=== PATIENT | female | born 1965 | race Two or more races ===

== ENCOUNTER 2017-09-25 07:30 | Inpatient (IN) | payer OTHER ==
[~2017-09-25] VITALS: Ht 175.3 cm; Wt 82.6 kg
[2017-11-27] MEDS ORDERED: PANTOPRAZOLE SO40 MG ORAL (10:48)
[2017-11-27] MEDS ORDERED: LANTUS SOL100 UNIT/1 SUBQ (10:48)
[2017-11-27] MEDS ORDERED: METFORMIN HCL1000 M1 ORAL (10:48)
[2017-11-27] MEDS ORDERED: HUMALOG100 UNIT/1 SUBQ (10:48)
[2017-11-27] MEDS ORDERED: AMLODIPINE BESYL5 MG ORAL (10:48)
[2017-11-27] MEDS ORDERED: LOSARTAN-HCTZ1 EACH ORAL (10:48)
[2017-11-28] VITALS (9 sets, daily range): BP systolic 104–163; BP diastolic 54–79
[2017-11-28] MEDS ORDERED: Zemuron 50mg/5ml Inj IV ONE (06:15)
[2017-11-28] MEDS ORDERED: Sodium Chloride 10ml vial INJ ONE (06:31)
[2017-11-28] MEDS ORDERED: Lidocaine 1% MPF 10mg/ml 5ml ONE (06:31)
[2017-11-28] MEDS ORDERED: Lidocaine 1% Plain 30 ml INJ ONE (06:32)
[2017-11-28] MEDS ORDERED: fentaNYL 100 mcg/2 mL IV ONE ×2 (06:42→09:21)
[2017-11-28] MEDS ORDERED: ceFAZolin sod 2 GM in D5W 110 ML IVPB ONE (07:00)
[2017-11-28] MEDS ORDERED: LR 1000ml 1,000 ML IVLG SCH (07:06)
--- NOTE | 2017-11-28 07:08 | Anethesia Preoperative Eval ---
Anesthesia Pre-op PMH/ROS General Date of Evaluation: Nov 28, 2017 Time of Evaluation: 07:31 Anesthesiologist: Karon ASA Score: ASA 3 Mallampati Score Class I : Soft palate, uvula, fauces, pillars visible Class II: Soft palate, uvula, fauces visible Class III: Soft palate, base of uvula visible Class IV: Only hard plate visible Mallampati Classification: Class II Surgeon: Katy Diagnosis: Back Pain Surgical Procedure: Bilateral L5-S1 Microdecompression, Microdiscectomy Anesthesia History: none Family History: no anesthesia problems Allergies: Coded Allergies: No Known Allergies (Unverified , 11/27/17) Medications: see eMAR Past Medical History Cardiovascular: Reports: HTN Gastrointestinal/Genitourinary: Reports: GERD Endocrine: Reports: DM Other: obesity - BMI 30 PSxH Narrative: NATALIE Anesthesia Pre-op Phys. Exam Physician Exam Last Vital Signs Date Time Temp Pulse Resp B/P (MAP) Pulse Ox O2 Delivery O2 Flow Rate FiO2 11/28/17 06:49 Room Air 11/28/17 06:33 96.7 96 18 163/79 (107) 99 96.7 Constitutional: NAD Neurologic: CN 2-12 intact Cardiovascular: RRR Respiratory: CTA Gastrointestinal: S/NT/ND Airway Exam Mallampati Score: Class II MO: full ROM: full Teeth: intact Anesthesia Pre-op A/P Risk Assessment & Plan Assessment: ASA 3 Plan: GA, SED, GlideScope Go Status Change Before Surgery: No Pre-Antibiotics Dru Gram Ancef IV Given Within 1 Hr of Incision: Yes Time Given: 07:41 Jimmy Brantley MD Nov 28, 2017 07:08
[2017-11-28] MEDS ORDERED: EPINEPHrine 1mg/1ml Amp ONE (07:14)
[2017-11-28] MEDS ORDERED: Vancomycin 1gm inj IVPB ONE (07:14)
[2017-11-28] MEDS ORDERED: Atropine Sulfate 0.4mg/ml inj IVP PRN (07:15)
[2017-11-28] MEDS ORDERED: Hydromorphone 0.5mg/0.5ml inj IVP PRN (07:15)
[2017-11-28] MEDS ORDERED: Norco 5mg/325mg tab ORAL PRN ×2 (07:15→07:30)
[2017-11-28] MEDS ORDERED: Labetalol 5mg/ml 20ml vial IV PRN (07:15)
[2017-11-28] MEDS ORDERED: Ketorolac 30mg Inj IV PRN ×2 (07:15)
[2017-11-28] MEDS ORDERED: Midazolam 2mg/2ml Inj IVP PRN (07:15)
[2017-11-28] MEDS ORDERED: Meperidine 50mg/ml Inj(FOR RIGORS ONLY) IVP PRN (07:15)
[2017-11-28] MEDS ORDERED: DiphenhydrAMINE 50mg/ml Inj IVP PRN (07:15)
[2017-11-28] MEDS ORDERED: HYDROcodone/Acetamin 7.5/325 tab ORAL PRN (07:15)
[2017-11-28] MEDS ORDERED: Gelfoam Size TOPIC ONE (07:15)
[2017-11-28] MEDS ORDERED: oxyCODONE HCL/Acetaminophen 5/325mg ORAL PRN (07:15)
[2017-11-28] MEDS ORDERED: fentaNYL 100 mcg/2 mL IV PRN (07:15)
[2017-11-28] MEDS ORDERED: LORazepam Inj 2mg/ml 1ml IV PRN (07:15)
[2017-11-28] MEDS ORDERED: Thrombin 5000 units TOPIC ONE ×2 (07:15→07:16)
[2017-11-28] MEDS ORDERED: Acetaminophen (Non formulary) 100 ML IV ONE (07:15)
[2017-11-28] MEDS ORDERED: Metoclopramide 10mg/2ml Inj IVP PRN (07:15)
[2017-11-28] MEDS ORDERED: Bupivacaine 0.5% Inj 30 ml vial INJ ONE (07:15)
[2017-11-28] MEDS ORDERED: Bacitracin 50000 Units Vial ONE (07:16)
[2017-11-28] MEDS: D5 1/2NS 1,000 ML IV SCH ×2 (07:27→15:11)
[2017-11-28] MEDS ORDERED: Propofol 1,000mg/ 100ml btl IV ONE (07:30)
[2017-11-28] MEDS ORDERED: Sterile Water Irrig 1000ml IRRIG ONE (07:30)
[2017-11-28] MEDS ORDERED: Morphine Sulfate 2mg/ml Inj IV PRN (07:30)
[2017-11-28] MEDS ORDERED: LR 1000ml ONE (07:30)
[2017-11-28] MEDS ORDERED: Morphine Sulfate 4mg/ml Inj (IV USE ONLY) IV PRN ×2 (07:30)
[2017-11-28] MEDS ORDERED: NS Irrig 1000ml ONE (07:30)
[2017-11-28] MEDS ORDERED: HYDROmorphone 1mg/ml Carpuject IVP PRN (07:30)
[2017-11-28] MEDS ORDERED: Naloxone 0.4mg/ml Inj IVP PRN (07:30)
--- NOTE | 2017-11-28 08:34 | Immediate Post-Op Evaluation ---
Immediate Post-Op Evalulation Immediate Post-Op Evalulation Procedure: Bilateral L5-S1 Microdecompression, Microdiscectomy Date of Evaluation: Nov 28, 2017 Time of Evaluation: 10:45 IV Fluids: 1200 LR Blood Products: 0 Estimated Blood Loss: 40 Urinary Output: 300 Blood Pressure Systolic: 104 Blood Pressure Diastolic: 50 Pulse Rate: 91 Respiratory Rate: 18 O2 Sat by Pulse Oximetry: 100 Temperature (Fahrenheit): 99.7 Pain Score (1-10): 3 Nausea: No Vomiting: No Complications 0 Patient Status: awake, reacts, patent, extubated, none Hydration Status: adequate Dru Grams Ancef IV Given Within 1 Hr of Incision: Yes Time Given: 07:41 Jimmy Brantley MD Nov 28, 2017 08:34
[2017-11-28] MEDS ORDERED: Glycopyrrolate 0.2mg/ml 1ml Vial ONE (08:46)
[2017-11-28] MEDS ORDERED: Neostigmine 1mg/ml 10ml Inj ONE (08:46)
[2017-11-28] MEDS: Docusate 100mg cap ORAL SCH ×2 (09:00→18:15)
--- NOTE | 2017-11-28 09:01 | Diagnostic Imaging Report ---
Indication: Left ankle pain Technique: 3 views of the left ankle Comparison: none Findings: There is mild soft tissue swelling over the lateral malleolus. No acute fractures. No dislocations. The joint spaces are preserved. No radiopaque foreign body. There are vascular calcifications Impression: Soft tissue swelling. No acute bony trauma
--- NOTE | 2017-11-28 10:17 | Pre-Procedure Note/Attestation ---
Pre-Procedure Note/Attestation Complete Prior to Procedure Procedure Narrative: B/L L5S1 microdecompression and microdiscectomy Indications for Procedure Pre-Operative Diagnosis: lumbar radiculopathy with hnp and stenosis and failure of non op management Attestation I attest that I discussed the nature of the procedure; its benefits; risks and complications; and alternatives (and the risks and benefits of such alternatives ), prior to the procedure, with the patient (or the patient's legal insurance follow up representative). I attest that, if there was a reasonable possibility of needing a blood transfusion, the patient (or the patient's legal insurance follow up representative) was given the [place] Department of [employer] Services standardized written summary, pursuant to the Wili Zeke Blood Safety Act ([place] Health and Safety Code # 1645, as amended). I attest that I re-evaluated the patient just prior to the surgery and that there has been no change in the patient's H&P, except as documented below: Govind Burns MD Nov 28, 2017 10:17
--- NOTE | 2017-11-28 10:28 | Brief Operative Note ---
Immediate Post Operative Note Operative Note Pre-op Diagnosis: lumbar radiculopathy with hnp and stenosis and failure of non op management Procedure: B/L L5S1 microdecompression/microdiscectomy/ and foraminotomies Post-op Diagnosis: same as pre-op Findings: consistent w/pre-op dx studies Surgeon: Katy Product Sales Engineer: Flo Anesthesiologist: Victoria Anesthesia: general Specimen: yes Complications: none Condition: stable Fluids: 1L Estimated Blood Loss: minimal - 40cc Drains: hemovac Implant(s) used?: No Govind Burns MD Nov 28, 2017 10:28
--- NOTE | 2017-11-28 11:07 | Diagnostic Imaging Report ---
Indication: Pain in left leg status post fall yesterday Technique: 2 views of the left tibia and fibula Comparison: none Findings: No acute fractures. No dislocations. Joint spaces are preserved Impression: Negative
--- NOTE | 2017-11-28 11:38 | Diagnostic Imaging Report ---
Indication: Pain in left lower extremity greater than right lower extremity, intraoperative Technique: Intraoperative imaging Total fluoroscopy time 3.9 seconds Total dose 1.95 mgy Number of images: 2 Comparison: none Findings: Intraoperative images demonstrate localizer needles posterior to what is presumably the L4-5 disc and the L5-S1 disc. Subsequent image demonstrates a surgical tool projecting posterior to the top of S1 Impression: Intraoperative imaging, as described
--- NOTE | 2017-11-28 15:08 | History and Physical ---
History of Present Illness General Date patient seen: Nov 28, 2017 Present Illness HPI 52 year old female with lumbar radiculopathy with hnp and stenosis admitted for L5-S1 microdecompression/microdiscectomy. Post operatively pt is admitted for postop management. Allergies: Coded Allergies: No Known Allergies (Unverified , 11/27/17) Medication History Scheduled Amlodipine Besylate* (Amlodipine Besylate*), 5 MG ORAL DAILY, (Reported) Insulin Glargine (Lantus), 70 SUBQ BEDTIME, (Reported) Insulin Lispro (Humalog), 7 SUBQ BEFORE MEALS, (Reported) Losartan/Hydrochlorothiazide (Losartan-Hctz 100-12.5 Mg Tab), 1 TAB ORAL DAILY, (Reported) Metformin Hcl* (Metformin Hcl*), 1,000 MG ORAL BIDAC, (Reported) Pantoprazole* (Pantoprazole*), 40 MG ORAL DAILY, (Reported) Patient History Healthcare decision maker leidy() Resuscitation status Full Code Advanced Directive on File No Review of Systems All Other Systems: negative except mentioned in HPI Physical Exam General Appearance: WD/WN, no apparent distress Lines, tubes and drains: peripheral HEENT: normocephalic, atraumatic Neck: non-tender, supple Respiratory/Chest: chest wall non-tender, lungs clear Breasts: no masses Cardiovascular/Chest: normal rate, regular rhythm Last 24 Hour Vital Signs Date Time Temp Pulse Resp B/P (MAP) Pulse Ox O2 Delivery O2 Flow Rate FiO2 11/28/17 11:14 88 18 128/62 100 Nasal Cannula 3 11/28/17 11:00 90 18 130/61 100 Nasal Cannula 3 11/28/17 10:44 89 18 117/57 100 Simple Mask 8 11/28/17 10:39 87 18 111/54 100 Simple Mask 8 11/28/17 10:34 99.7 89 18 104/56 100 Simple Mask 8 99.7 11/28/17 10:34 211.5 91 18 100 11/28/17 06:49 Room Air 11/28/17 06:33 96.7 96 18 163/79 (107) 99 96.7 Intake and Output 11/27/17 11/28/17 19:00 07:00 # Voids 1 Height (Feet): 5 Height (Inches): 9.00 Weight (Pounds): 185 Medications Current Medications Medications (Trade) Dose Ordered Sig/Raymundo Route PRN Reason Start Time Stop Time Status Last Admin Dose Admin Acetaminophen/ Hydrocodone Bitart ([place] 5/325) 1 tab Q3H PRN ORAL pain score 1-3 11/28/17 07:30 12/05/17 07:29 Acetaminophen/ Hydrocodone Bitart ([place] 7.5/325) 1 tab Q3H PRN ORAL pain score 4-6 11/28/17 07:30 12/05/17 07:29 Acetaminophen/ Hydrocodone Bitart ([place] 7.5/325) 2 tab Q3H PRN ORAL pain scale 7-10 11/28/17 07:30 12/05/17 07:29 Cefazolin Sodium 1 gm/Dextrose 55 ml @ 110 mls/hr Q8H IV 11/28/17 16:00 11/29/17 08:29 Dextrose/Sodium Chloride 1,000 ml @ 100 mls/hr Q10H IV 11/28/17 07:27 12/28/17 07:26 Docusate Sodium (Colace) 100 mg TWICE A DAY ORAL 11/28/17 09:00 12/28/17 08:59 Hydromorphone HCl (Dilaudid) 1 mg Q2H PRN IVP Breakthrough Pain 11/28/17 07:30 12/05/17 07:29 Morphine Sulfate (Morphine Sulfate) 2 mg Q4H PRN IV Mild Pain (Pain Scale 1-3) 11/28/17 07:30 12/05/17 07:29 Morphine Sulfate (Morphine Sulfate) 4 mg Q3H PRN IV Severe Pain (Pain Scale 7-10) 11/28/17 07:30 12/05/17 07:29 Morphine Sulfate (Morphine Sulfate) 4 mg Q4H PRN IV Moderate Pain (Pain Scale 4-6) 11/28/17 07:30 12/05/17 07:29 Naloxone HCl (Narcan) 0.1 mg PRN PRN IVP RR<12/min, pt unarousable 11/28/17 07:30 12/28/17 07:29 Assessment/Plan Problem List: (1) Lumbar radiculopathy ICD Codes: M54.16 - Radiculopathy, lumbar region SNOMED: 768039233 (2) Diabetes mellitus ICD Codes: E11.9 - Type 2 diabetes mellitus without complications SNOMED: 10031574 (3) HTN (hypertension) ICD Codes: I10 - Essential (primary) hypertension SNOMED: 70519487 Assessment/Plan pain management sliding scale diabetic diet pt/ot Maranda Oscar MD Nov 28, 2017 15:08
[2017-11-28] MEDS: ceFAZolin sod 1 GM in D5W 55 ML IV SCH (15:11)
[2017-11-28] MEDS: NovoLOG Insulin Flexpen SUBQ SCH ×2 (18:43→20:30)
[2017-11-29] VITALS: BP 113/56
[2017-11-29] MEDS: ceFAZolin sod 1 GM in D5W 55 ML IV SCH ×2 (00:59→09:08)
[2017-11-29] MEDS: HYDROcodone/Acetamin 7.5/325 tab ORAL PRN ×4 (01:03→21:23)
[2017-11-29 04:00] VITALS: BP 115/70
[2017-11-29] MEDS: NovoLOG Insulin Flexpen SUBQ SCH ×4 (05:52→21:26)
--- NOTE | 2017-11-29 07:57 | 48 Hour Post Anesthesia Eval ---
Post Anesthesia Evaluation Procedure: Bilateral L5-S1 Microdecompression, Microdiscectomy Date of Evaluation: Nov 29, 2017 Time of Evaluation: 06:30 Blood Pressure Systolic: 115 0: 70 Pulse Rate: 82 Respiratory Rate: 17 Temperature (Fahrenheit): 98 O2 Sat by Pulse Oximetry: 95 Airway: patent Nausea: No Vomiting: No Pain Intensity: 2 Hydration Status: adequate Cardiopulmonary Status: at baseline Mental Status/LOC: patient returned to baseline Post-Anesthesia Complications: 0 Follow-up care needed: N/A - further care as per primary teamSandy Uriostegui MD Nov 29, 2017 07:57
[2017-11-29 08:00] VITALS: BP 116/66
--- NOTE | 2017-11-29 08:47 | General Progress Note ---
Progress Note Progress Note mild lbp and no leg pain hv min output taken out this am ambulating and doing well with it avss a and o times 3 dressing changed inc cdi hv out 5/5 motor in the le and ue lt intact calves soft and nt a: doing well P: oob and npt pain meds fall and spine precautions folluw up in the office in 7 to 10 days rx given Govind Burns MD Nov 29, 2017 08:47
[2017-11-29] MEDS: Docusate 100mg cap ORAL SCH ×2 (09:07→17:03)
[2017-11-29] MEDS ORDERED: NORCO 5-325 TA1 EACH ORAL (10:13)
[2017-11-29] MEDS ORDERED: NAPROXEN500 M1 ORAL (10:16)
[2017-11-29 12:00] VITALS: BP 121/64
--- NOTE | 2017-11-29 13:37 | Pulmonology Progress Note ---
Assessment/Plan Problems: (1) Lumbar radiculopathy (2) Diabetes mellitus (3) HTN (hypertension) Assessment/Plan improving pain management monitor BP symptomatic treatment Subjective ROS Limited/Unobtainable: Yes Allergies: Coded Allergies: MORPHINE (Verified Allergy, Mild, Rash, 11/29/17) Objective Last 24 Hour Vital Signs Date Time Temp Pulse Resp B/P (MAP) Pulse Ox O2 Delivery O2 Flow Rate FiO2 11/29/17 12:00 99.7 99 20 121/64 (83) 97 99.7 11/29/17 09:08 102 116/66 11/29/17 09:00 Room Air Room Air 11/29/17 08:00 99.0 102 20 116/66 (83) 96 99.0 11/29/17 07:57 208.4 82 17 95 11/29/17 04:00 98.0 82 17 115/70 (85) 95 98.0 11/29/17 00:00 98.3 94 18 113/56 (75) 97 98.3 11/28/17 21:00 Room Air Room Air 11/28/17 20:00 98.4 100 20 133/69 (90) 97 98.4 11/28/17 16:00 98.7 88 20 121/74 (90) 97 98.7 Intake and Output 11/28/17 11/29/17 19:00 07:00 Intake Total 2520 ml 855 ml Output Total 340 ml Balance 2180 ml 855 ml Intake Oral 720 ml 480 ml IV Total 1800 ml 375 ml Output Urine Total 300 ml Estimated Blood Loss 40 ml # Voids 2 2 General Appearance: cachetic HEENT: normocephalic, atraumatic Respiratory/Chest: chest wall non-tender, lungs clear Cardiovascular: normal rate, no JVD Abdomen: soft, non tender Extremities: no cyanosis Skin: no lesions Neurologic/Psychiatric: no motor/sensory deficits Current Medications Medications (Trade) Dose Ordered Sig/Raymundo Route PRN Reason Start Time Stop Time Status Last Admin Dose Admin Acetaminophen/ Hydrocodone Bitart ([place] 5/325) 1 tab Q3H PRN ORAL pain score 1-3 11/28/17 07:30 12/05/17 07:29 Acetaminophen/ Hydrocodone Bitart ([place] 7.5/325) 1 tab Q3H PRN ORAL pain score 4-6 11/28/17 07:30 12/05/17 07:29 11/29/17 12:23 Acetaminophen/ Hydrocodone Bitart ([place] 7.5/325) 2 tab Q3H PRN ORAL pain scale 7-10 11/28/17 07:30 12/05/17 07:29 Amlodipine Besylate (Norvasc) 5 mg DAILY ORAL 11/29/17 09:00 12/29/17 08:59 11/29/17 09:08 Dextrose (Dextrose 50%) 25 ml PRN IV Hypoglycemia 11/28/17 15:15 12/28/17 15:14 Dextrose (Dextrose 50%) 50 ml PRN IV hypoglycemia 11/28/17 15:15 12/28/17 15:14 Docusate Sodium (Colace) 100 mg TWICE A DAY ORAL 11/28/17 09:00 12/28/17 08:59 11/29/17 09:07 Hydromorphone HCl (Dilaudid) 1 mg Q2H PRN IVP Breakthrough Pain 11/28/17 07:30 12/05/17 07:29 11/28/17 20:18 Insulin Aspart (NovoLOG) BEFORE MEALS AND HS SUBQ 11/28/17 16:30 12/28/17 16:29 11/29/17 12:12 Naloxone HCl (Narcan) 0.1 mg PRN PRN IVP RR<12/min, pt unarousable 11/28/17 07:30 12/28/17 07:29 Ondansetron HCl (Zofran) 4 mg Q6H PRN IVP Nausea & Vomiting 11/29/17 07:45 12/29/17 07:44 Sodium Chloride 1,000 ml @ 75 mls/hr [id number] IV 11/28/17 22:45 12/28/17 22:44 11/29/17 12:13 Maranda Oscar MD Nov 29, 2017 13:37
--- NOTE | 2017-11-29 14:17 | Pulmonology Progress Note ---
Assessment/Plan Problems: (1) Low grade fever (2) Lumbar radiculopathy (3) Diabetes mellitus (4) HTN (hypertension) Assessment/Plan cbc, bmp sliding scale urine analysis symptomatic treatment Subjective ROS Limited/Unobtainable: No Constitutional: Reports: no symptoms HEENT: Repors: no symptoms Respiratory: Reports: no symptoms Allergies: Coded Allergies: MORPHINE (Verified Allergy, Mild, Rash, 11/29/17) Objective Last 24 Hour Vital Signs Date Time Temp Pulse Resp B/P (MAP) Pulse Ox O2 Delivery O2 Flow Rate FiO2 11/29/17 12:00 99.7 99 20 121/64 (83) 97 99.7 11/29/17 09:08 102 116/66 11/29/17 09:00 Room Air Room Air 11/29/17 08:00 99.0 102 20 116/66 (83) 96 99.0 11/29/17 07:57 208.4 82 17 95 11/29/17 04:00 98.0 82 17 115/70 (85) 95 98.0 11/29/17 00:00 98.3 94 18 113/56 (75) 97 98.3 11/28/17 21:00 Room Air Room Air 11/28/17 20:00 98.4 100 20 133/69 (90) 97 98.4 11/28/17 16:00 98.7 88 20 121/74 (90) 97 98.7 Intake and Output 11/28/17 11/29/17 19:00 07:00 Intake Total 2520 ml 855 ml Output Total 340 ml Balance 2180 ml 855 ml Intake Oral 720 ml 480 ml IV Total 1800 ml 375 ml Output Urine Total 300 ml Estimated Blood Loss 40 ml # Voids 2 2 General Appearance: WD/WN HEENT: atraumatic Respiratory/Chest: chest wall non-tender, lungs clear Cardiovascular: normal peripheral pulses, normal rate, regular rhythm Abdomen: normal bowel sounds, soft, non tender Genitourinary: normal external genitalia Skin: no rash Current Medications Medications (Trade) Dose Ordered Sig/Raymundo Route PRN Reason Start Time Stop Time Status Last Admin Dose Admin Acetaminophen/ Hydrocodone Bitart ([place] 5/325) 1 tab Q3H PRN ORAL pain score 1-3 11/28/17 07:30 12/05/17 07:29 Acetaminophen/ Hydrocodone Bitart ([place] 7.5/325) 1 tab Q3H PRN ORAL pain score 4-6 11/28/17 07:30 12/05/17 07:29 11/29/17 12:23 Acetaminophen/ Hydrocodone Bitart ([place] 7.5/325) 2 tab Q3H PRN ORAL pain scale 7-10 11/28/17 07:30 12/05/17 07:29 Amlodipine Besylate (Norvasc) 5 mg DAILY ORAL 11/29/17 09:00 12/29/17 08:59 11/29/17 09:08 Dextrose (Dextrose 50%) 25 ml PRN IV Hypoglycemia 11/28/17 15:15 12/28/17 15:14 Dextrose (Dextrose 50%) 50 ml PRN IV hypoglycemia 11/28/17 15:15 12/28/17 15:14 Docusate Sodium (Colace) 100 mg TWICE A DAY ORAL 11/28/17 09:00 12/28/17 08:59 11/29/17 09:07 Hydromorphone HCl (Dilaudid) 1 mg Q2H PRN IVP Breakthrough Pain 11/28/17 07:30 12/05/17 07:29 11/28/17 20:18 Insulin Aspart (NovoLOG) BEFORE MEALS AND HS SUBQ 11/28/17 16:30 12/28/17 16:29 11/29/17 12:12 Naloxone HCl (Narcan) 0.1 mg PRN PRN IVP RR<12/min, pt unarousable 11/28/17 07:30 12/28/17 07:29 Ondansetron HCl (Zofran) 4 mg Q6H PRN IVP Nausea & Vomiting 11/29/17 07:45 12/29/17 07:44 Sodium Chloride 1,000 ml @ 75 mls/hr [id number] IV 11/28/17 22:45 12/28/17 22:44 11/29/17 12:13 Maranda Oscar MD Nov 29, 2017 14:17
[2017-11-29 14:45] LABS: BILIRUBIN, URINE NEGATIVE (NEGATIVE); COLOR,URINE PALE YELLOW; GLUCOSE, URINE (UA) NEGATIVE (NEGATIVE); KETONES,URINE NEGATIVE (NEGATIVE); LEUKOCYTE ESTERASE ,URINE 1+ (NEGATIVE); NITRITE,URINE NEGATIVE (NEGATIVE); PH,URINE 5 (4.5-8.0); PROTEIN,URINE 1+ (NEGATIVE); UROBILINOGEN,URINE NORMAL MG/DL (0.0-1.0)
[2017-11-29 14:48] LABS: APPEARANCE,URINE SLIGHTLY CLOUDY
[2017-11-29 14:53] LABS: BASOPHILS % (AUTO) 0.7 % (0.0-2.0); EOSINOPHILS % (AUTO) 2.1 % (0.0-3.0); HEMATOCRIT 29.2 % (37.0-47.0); HEMOGLOBIN 9.8 G/DL (12.0-16.0); LYMPHOCYTES % (AUTO) 19.5 % (20.0-45.0); MEAN CORPUSCULAR VOLUME 91 FL (80-99); MONOCYTES % (AUTO) 8.9 % (1.0-10.0); NEUTROPHILS % (AUTO) 68.8 % (45.0-75.0); PLATELET COUNT 207 K/UL (150-450); RED BLOOD COUNT 3.19 M/UL (4.20-5.40); RED CELL DISTRIBUTION WIDTH 11.6 % (11.6-14.8); WHITE BLOOD COUNT 11.6 K/UL (4.8-10.8)
[2017-11-29 15:11] LABS: ANION GAP 8 mmol/L (5-15); BLOOD UREA NITROGEN 25 mg/dL (7-18); CALCIUM 9.2 MG/DL (8.5-10.1); CARBON DIOXIDE 25 MMOL/L (21-32); CHLORIDE 105 MMOL/L (98-107); CREATININE 1.3 MG/DL (0.55-1.30); POTASSIUM 5.1 MMOL/L (3.5-5.1); SODIUM 138 MMOL/L (136-145)
[2017-11-29 16:00] VITALS: BP 130/77
--- NOTE | 2017-11-29 17:00 | Operative Note - Dictated ---
DATE OF OPERATION: 11/28/2017 PREOPERATIVE DIAGNOSIS: L5-S1 disk protrusion with stenosis and bilateral lower extremity radiculopathy. POSTOPERATIVE DIAGNOSIS: L5-S1 disk protrusion with stenosis and bilateral lower extremity radiculopathy. PROCEDURE PERFORMED: 1. Left L5-S1 interlumbar laminotomy, medial facetectomy, foraminotomy, and microdiskectomy. 2. Right L5-S1 interlumbar laminotomy, medial facetectomy, foraminotomy, and microdiskectomy. 3. Intraoperative use of microscope for microdissection. 4. Intraoperative use of fluoroscopy. SURGEON: Govind Burns M.D. CALENDERING SUPERVISOR: Dr. Gurjit Rossi. ANESTHESIA: General endotracheal anesthesia. ANESTHESIOLOGIST: Jimmy Brantley M.D. ESTIMATED BLOOD LOSS: 30 mL. FLUID: 1 liter of crystalloid. INTRAOPERATIVE FINDINGS: L5-S1 disk height collapse, disk protrusion with bilateral intraforaminal extension and bilateral lateral recess stenosis and bilateral neural foraminal stenosis, and impinging of the traversing and exiting L5 and S1 nerve roots. INDICATIONS: This is a pleasant female, who failed nonoperative treatment and option for above treatment was given. Risks, alternatives, and benefits were discussed with the patient at length. Risks include, but are not limited to, anesthesia complications including , medical complications including liver, kidney, cardiopulmonary deficits, infection, bleeding, dural tear, CSF leak, nerve root injury, pars fracture, instability, reherniation, and continued symptoms. DESCRIPTION OF OPERATION: The patient was brought into the operating room supine on a stretcher. Subsequently, appropriate IV lines were placed and 2 g of Ancef was administered. Anesthesia was induced and the patient was successfully intubated. Sequential compression devices were placed. A Triplett was placed under sterile conditions. The patient was gently turned over on the Darin frame table. All bony prominences were well padded. The abdomen was assured to lay freely. The L5-S1 interspace was positively identified via fluoroscopy and an indelible marker was used to jordan the midline. At this point, the patient's back was prepped and draped in usual sterile fashion with alcohol, chlorhexidine scrub, and ChloraPrep [place] draping. Myself and my field assistant were prepped and gowned as well. A surgical time-out was called. At this point, the intraoperatively sterilely draped microscope was brought into the field. An incision was carried out over the midline and subperiosteal dissection of both the lamina bilaterally at L5-S1 was done and a E Business Specialist retractor was initially placed on the left side. The radiopaque marker was placed at the lower pedicle level, lateral fluoroscopy was done and revealed the left S1 pedicle at the level of the radiopaque marker and thus, the left L5-S1 interspace was positively identified. At this point, attention was diverted to decompression with a high-speed drill, straight and curved curette #2 through #5 Kerrison punches and interlumbar laminotomy, medial facetectomy, and foraminotomy was carried out. The ligamentum flavum was hypertrophied and was removed and the medial aspect of the superior articular facet was removed. This was impinging onto the traversing left S1 nerve root. At this point, a foraminotomy was done with curved curette as well as with #2 Kerrison punches. The hemostasis was achieved with Gelfoam, thrombin, bipolar cautery, and FloSeal and a Russell 4 was used to get to the floor of the canal and a nerve root retractor was used to remove the neural elements medially. SSEP monitoring and EMG was done throughout the case and remained stable. There was an improvement in the dermatomal SSEP, of the decompression. At this point, a disk protrusion was found in the lateral recess extending into the foraminal space. Impinging on both the traversing and exiting nerve roots and with an #11 blade, the horizontal slit incision was carried out with Anais curette [place] river, a microdiskectomy was carried out until the floor of the canal was flat and complete decompression of the exiting L5 nerve root and the traversing S1 nerve root was completed, a Eason ball was replaced into the foramina and extra foraminal and an excellent decompression of the foramen was assured. A Valsalva at 40 mmHg was done. There was no CSF leak and a final check of the central canal lateral recess foramina was done and the L5 and S1 nerve roots on the left side were found to be very well decompressed. Attention was now diverted to the right side. Retractor was placed to the right side at L5-S1 and with the same instruments an interlumbar laminotomy, medial facetectomy, and foraminotomy was carried out. The ligamentum flavum, which was hypertrophy was removed and attention was diverted to decompression of the lateral recess. The medial aspect of the superior articular facet was removed, which was impinging on the traversing right S1 nerve root and now attention was diverted to the foraminotomy, which was completed with a #2 Kerrison punch. Hemostasis was achieved with Gelfoam, thrombin, bipolar cautery, and a Russell 4 retractor was used to isolate the disk and nerve root retractor was used to medially retract the traversing S1 nerve root on the right side as well as the common dural sac. Once this was done, a large disk herniation was found, which was impinging both in the lateral recess on the traversing nerve and in the foramina for the exiting right L5 nerve root. A horizontal slit incision was carried out in the disk and with pituitary rongeurs and Anais the disk herniation was removed until the floor of the canal was flat and complete decompression of the traversing and exiting nerve roots on the right side entailed. A Eason ball as well as a Chiara probe was placed into the foramina and extraforaminally and a complete decompression of the foramina was assured. A Valsalva 40 mmHg was done. There was no CSF leak. A final check revealed complete decompression of the central canal and bilateral lateral recesses and bilateral foramina. At this point, attention was diverted to closure, hemostasis was achieved. The wound was copiously irrigated with triple antibiotic solution. A subfascial Hemovac drain was placed. A 1 g of vancomycin powder was placed suprafascially as well as subfascially. The dorsal lumbar fascia was closed with #1 Vicryl suture in a watertight interrupted fashion. The subdural and subcuticular layers were closed with 2-0 Vicryl sutures. The skin was closed with Dermabond, sterile dressing, and tape was placed. The patient was turned supine, was extubated in stable condition. She was found to be neurovascularly intact and taken to the recovery room for admission to the hospital and monitoring. There were no complications during the case. All sponge, needle, and instrument counts were correct. Govind Burns M.D. DR: KAREL JOB#: [id number] CC:
[2017-11-29 20:00] VITALS: BP 107/48
[2017-11-30] VITALS: BP 112/56
[2017-11-30 04:00] VITALS: BP 117/57
[2017-11-30] MEDS: NovoLOG Insulin Flexpen SUBQ SCH (06:00)
[2017-11-30 07:09] LABS: BASOPHILS % (AUTO) 0.9 % (0.0-2.0); EOSINOPHILS % (AUTO) 2.9 % (0.0-3.0); HEMATOCRIT 25.8 % (37.0-47.0); LYMPHOCYTES % (AUTO) 24.9 % (20.0-45.0); MEAN CORPUSCULAR VOLUME 91 FL (80-99); MONOCYTES % (AUTO) 9.2 % (1.0-10.0); NEUTROPHILS % (AUTO) 62.2 % (45.0-75.0); PLATELET COUNT 172 K/UL (150-450); RED BLOOD COUNT 2.84 M/UL (4.20-5.40); RED CELL DISTRIBUTION WIDTH 11.6 % (11.6-14.8); WHITE BLOOD COUNT 11.7 K/UL (4.8-10.8)
[2017-11-30] MEDS: HYDROcodone/Acetamin 7.5/325 tab ORAL PRN (07:56)
[2017-11-30] MEDS: Docusate 100mg cap ORAL SCH (07:58)
[2017-11-30 08:00] VITALS: BP 120/63
[2017-11-30 08:04] LABS: ALANINE AMINOTRANSFERASE 33 U/L (12-78); ALBUMIN 2.6 G/DL (3.4-5.0); ALBUMIN/GLOBULIN RATIO 0.7 (1.0-2.7); ALKALINE PHOSPHATASE 61 U/L (46-116); ANION GAP 7 mmol/L (5-15); ASPARTATE AMINO TRANSFERASE 24 U/L (15-37); BILIRUBIN,TOTAL 0.5 MG/DL (0.2-1.0); BLOOD UREA NITROGEN 22 mg/dL (7-18); CALCIUM 8.8 MG/DL (8.5-10.1); CARBON DIOXIDE 25 MMOL/L (21-32); CHLORIDE 106 MMOL/L (98-107); CREATININE 1.1 MG/DL (0.55-1.30); PHOSPHORUS 2.3 MG/DL (2.5-4.9); POTASSIUM 4.7 MMOL/L (3.5-5.1); SODIUM 137 MMOL/L (136-145)
[2017-11-30] MEDS ORDERED: 1/2 NS 1000ml IV ONE (09:44)
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
== END 2017-11-30 09:45 | disposition home or self-care (01) | DRG 520 ==
LOC: SDSOVERFLO 11-28 05:39 → 3E 11-28 11:45
DX: M51.17 Intervertebral disc disorders with radiculopathy, lumbosacral region (principal); E11.9 Type 2 diabetes mellitus without complications; I10 Essential (primary) hypertension; M48.061 Spinal stenosis, lumbar region without neurogenic claudication; R50.9 Fever, unspecified
CPT/HCPCS: 36415; 72020; 76000; 80048; 80053; 81001; 82962; 83735; 84100; 85025; 85651; 86140; 86850; 86900; 86901; 87081; 94003; 94150; J1815; J2405; J2710